=== PATIENT | male | born 1960 | race Caucasian/White ===

== ENCOUNTER 2017-11-03 13:55 | Observation (INO) | payer BC ==
[~2017-11-03] VITALS: Ht 177.8 cm; Wt 94.0 kg
--- NOTE | 2017-11-03 14:14 | EMERGENCY ROOM VISIT NOTE ---
History Report prepared by Chantelle: Yeison Bright Under the Supervision of: Dr. Carter Ferris M.D. First contact with patient: 14:01 Chief Complaint: CARDIAC ASSESSMENT Stated Complaint: DIZZY, ERRATIC HEARTRATE History of Present Illness The patient is a 57 year old male who presents to the Emergency Room with complaints of intermittent light headedness occurring around 1130. The patient states that he has felt like he was going to pass out and dizzy, though he did not feel like the room was spinning, and he states that he felt fine this morning. The patient states that he also went to feel his pulse, and it was erratic. He denies any sweating, chest pain, back pain, shortness of breath, abdominal pain, black stools, bloody stools, headache, and numbness. He states that he feels anxious, and he does not feel like his heart is racing. 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 He denies any history of heart problems or thyroid problems. He states that a year ago he felt similar anxiousness, and he had high blood pressure and was put on atenolol. He reports that he has missed a few doses recently, though he took one last night, and he took two aspirin this morning. The patient has a family history of diabetes. Source of History: patient Onset: 1130 Position: other (generalized) Quality: other (light headedness) Timing: intermittent Associated Symptoms: No headache, No chest pain, No SOB, No abdominal pain, No back pain, No numbness Note: Associated symptoms: his pulse was erratic Review of Systems See HPI for pertinent positives & negatives. A total of 10 systems reviewed and were otherwise negative. Past Medical & Surgical Medical Problems: (1) HTN (hypertension) Old medical records were attempted to be reviewed but there are no old records at this hospital. Nurse's notes were reviewed and I agree with. Denies previous history of cardiac Social History Smoking Status: Never Smoker Marital Status: Housing Status: lives with family Occupation Status: employed Current/Historical Medications Scheduled Aspirin (Aspirin Ec), 325 MG PO DAILY Atenolol (Tenormin), 50 MG PO HS Allergies Coded Allergies: Erythromycin (Unverified Adverse Reaction, Intermediate, UNKNOWN, 11/03/17) Penicillins (Unverified Adverse Reaction, Intermediate, RASH, 11/03/17) Physical Exam Vital Signs Date Time Temp Pulse Resp B/P (MAP) Pulse Ox O2 Delivery O2 Flow Rate FiO2 11/03/17 16:49 83 20 125/84 98 Room Air 11/03/17 15:40 89 19 122/82 97 Room Air 11/03/17 15:00 62 20 104/71 97 Room Air 11/03/17 14:19 72 11/03/17 14:05 97 Room Air 11/03/17 13:57 36.6 69 16 140/89 96 Room Air Physical Exam General: Non-ill appearing middle aged male in no acute distress. HEENT: Normal cephalic atraumatic. Pupils are equal round and reactive to light. Extraocular movements are intact. Oropharynx is pink with moist mucous membranes. No swelling of the mouth lips or tongue. Neck: Supple with a midline trachea. No meningeal signs or stiffness, no JVD or bruits. No Stridor. Chest: Clear to auscultation bilaterally. No wheezes or rhonchi. No increased work of breathing. Heart: regular rate and rhythm. Abdomen: Soft nontender, nondistended without rebound guarding or rigidity. Extremities: No cyanosis clubbing or edema. No calf tenderness or assymetry Spine/Back. Non tender to palpation. No CVA tenderness Skin: Good turgor without rashes. Neurologic exam: Cranial nerves two through 12 are intact. Motor and sensation are intact and symmetrical throughout. Medical Decision & Procedures ER Provider Diagnostic Interpretation: Radiology results as stated below per my review and radiologist interpretation: CHEST ONE VIEW PORTABLE CLINICAL HISTORY: 57 years-old Male presenting with CHEST PAIN, dizziness, erratic heart rate. TECHNIQUE: Portable upright AP view of the chest was obtained. COMPARISON: None. FINDINGS: Cardiomediastinal silhouette normal. No focal opacity. No large effusion or pneumothorax. Osseous structures normal. Upper abdomen normal. IMPRESSION: 1. No acute cardiopulmonary disease. Electronically signed by: Benjamin Steele M.D. 11/03/2017 2:44 PM Dictated Date/Time: 11/03/2017 2:43 PM Laboratory Results 11/03/17 14:15 Red Blood Count 5.04, Mean Corpuscular Volume 88.5, Mean Corpuscular Hemoglobin 31.2, Mean Corpuscular Hemoglobin Concent 35.2, Mean Platelet Volume 10.2, Neutrophils (%) (Auto) 58.5, Lymphocytes (%) (Auto) 30.5, Monocytes (%) (Auto) 6.9, Eosinophils (%) (Auto) 3.9, Basophils (%) (Auto) 0.2, Neutrophils # (Auto) 2.55, Lymphocytes # (Auto) 1.33, Monocytes # (Auto) 0.30, Eosinophils # (Auto) 0.17, Basophils # (Auto) 0.01 11/03/17 14:15 Test 11/03/17 14:15 11/03/17 14:24 11/03/17 15:07 White Blood Count 4.36 K/uL (4.8-10.8) Red Blood Count 5.04 M/uL (4.7-6.1) Hemoglobin 15.7 g/dL (14.0-18.0) Hematocrit 44.6 % (42-52) Mean Corpuscular Volume 88.5 fL (80-100) Mean Corpuscular Hemoglobin 31.2 pg (25-34) Mean Corpuscular Hemoglobin Concent 35.2 g/dl (32-36) Platelet Count 173 K/uL (130-400) Mean Platelet Volume 10.2 fL (7.4-10.4) Neutrophils (%) (Auto) 58.5 % Lymphocytes (%) (Auto) 30.5 % Monocytes (%) (Auto) 6.9 % Eosinophils (%) (Auto) 3.9 % Basophils (%) (Auto) 0.2 % Neutrophils # (Auto) 2.55 K/uL (1.4-6.5) Lymphocytes # (Auto) 1.33 K/uL (1.2-3.4) Monocytes # (Auto) 0.30 K/uL (0.11-0.59) Eosinophils # (Auto) 0.17 K/uL (0-0.5) Basophils # (Auto) 0.01 K/uL (0-0.2) RDW Standard Deviation 44.0 fL (36.4-46.3) RDW Coefficient of Variation 13.6 % (11.5-14.5) Immature Granulocyte % (Auto) 0.0 % Immature Granulocyte # (Auto) 0.00 K/uL (0.00-0.02) Prothrombin Time 10.6 SECONDS (9.0-12.0) Prothromb Time International Ratio 1.0 (0.9-1.1) Activated Partial Thromboplast Time 26.6 SECONDS (21.0-31.0) Partial Thromboplastin Ratio 1.0 Anion Gap 6.0 mmol/L (3-11) Est Creatinine Clear Calc Drug Dose 105.0 ml/min Estimated GFR () 108.1 Estimated GFR (Non- 93.3 BUN/Creatinine Ratio 18.5 (10-20) Calcium Level 8.6 mg/dl (8.5-10.1) Magnesium Level 2.2 mg/dl (1.8-2.4) Total Bilirubin 0.7 mg/dl (0.2-1) Direct Bilirubin mg/dl (0-0.2) Aspartate Amino Transf (AST/SGOT) 28 U/L (15-37) Alanine Aminotransferase (ALT/SGPT) 31 U/L (12-78) Alkaline Phosphatase 66 U/L (45-117) Total Creatine Kinase 155 U/L (39-308) Creatine Kinase MB 1.2 ng/ml (0.5-3.6) Creatine Kinase MB Ratio 0.8 (0-3.0) Total Protein 7.5 gm/dl (6.4-8.2) Albumin 4.0 gm/dl (3.4-5.0) Lipase 106 U/L (73-393) Thyroid Stimulating Hormone (TSH) 1.440 uIu/ml (0.300-4.500) Chemistry Specimen Hemolysis Bedside Troponin I < 0.030 ng/ml (0-0.045) Lyme Disease IgG Antibody NEG (NEG) Lyme Disease IgM Antibody NEG (NEG) Laboratory studies as stated above per my review. Medications Administered Medications (Trade) Dose Ordered Sig/Bunny Route Start Time Stop Time Status Last Admin Dose Admin Sodium Chloride 1,000 ml @ 999 mls/hr Q1H1M STAT IV 11/03/17 16:27 11/03/17 17:27 11/03/17 16:46 999 MLS/HR Sodium Chloride 1,000 ml @ 150 mls/hr Q6H40M ONCE IV 11/03/17 16:27 11/03/17 23:06 11/03/17 16:46 150 MLS/HR ECG Per My Interpretation Indication: syncope Rate (beats per minute): 67 Rhythm: normal sinus Findings: no acute ischemic change, no ectopy, other (Normal intervals) Comparison ECG Date: no prior available ED Course 1401: Past medical records reviewed. The patient was evaluated in room B8, and a complete history and physical examination were performed. 1426: The patient was just hooked up to the monitor, and he has frequent PVCs. 1451: I reevaluated the patient, and he was doing well. 1540: I reassessed the patient, and he was resting comfortably. 1625: I reevaluated the patient, and he was doing well. 1627: Sodium Chloride 1000 ml @ 150 mls/hr IV, Sodium Chloride 1000 ml @ 999 mls /hr IV 1630: Discussed the patient's case with Divina Calles PA-C, [facility] Hospitalist. The patient will be evaluated for further management. 1632: Upon reevaluation, the patient is resting comfortably. I discussed the results and treatment plan with the patient. He verbalized agreement of the treatment plan. The patient will be evaluated for further management. Medical Decision Differentials include, but are not limited to; arrhythmia, acute coronary syndrome, thyroid disease, electrolyte or metabolic abnormality, lyme disease This patient comes in as described above appears placed in room B8. He is here for treatment evaluation of feeling like he may pass out he says. his pulse is also been irregular at times he feels like he is dropping beats. 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 He has had no recent illness but denies chest pain or shortness of breath. He does spend a lot of time outside has had no known Lyme disease. IV access was established was placed on a compliance monitor. EKG, chest x-ray, multiple blood testing was obtained to evaluate from a cardiac standpoint as well as other potential etiologies including thyroid disease and Lyme disease. He has remained stable. He does have frequent PVCs but no other ectopy or significant arrhythmia seen on the monitor. EKG was obtained which shows no acute ischemic changes or ectopy seen. His CK-MB and troponin were both negative. He had no acute electrolyte or metabolic abnormalities. He has nothing to suggest thyroid disease. Lyme titer was negative. Given his near syncopal episode and frequent PVCs, I do think he should be observed and further ruled out from cardiac standpoint. The patient and his were in agreement with this plan. I consulted the hospitalist to see him in the ER. He did take aspirin two adult strength prior to arrival. Medication Reconcilliation Current Medication List: was personally reviewed by me Blood Pressure Screening Patient's blood pressure: Normal blood pressure Consults Time Called: 1627 Consulting Physician: Gill Jasmine PA-C Hospitalist Returned Call: 1630 Discussed the patient's case with Gill Jasmine PA-C Hospitalfrances. The patient will be evaluated for further management. Impression Primary Impression: Near syncope Additional Impressions: Dizziness PVC (premature ventricular contraction) Scribe Attestation The scribe's documentation has been prepared under my direction and personally reviewed by me in its entirety. I confirm that the note above accurately reflects all work, treatment, procedures, and medical decision making performed by me. Departure Information Dispostion Being Evaluated By Hospitalist Patient Instructions My [facility] Health Problem Qualifiers
[2017-11-03] MEDS ORDERED: ASPI325T39 PO (14:24)
[2017-11-03] MEDS ORDERED: ATEN50TA8 PO (14:24)
[2017-11-03 14:33] LABS: BASO % 0.2 %; BASO ABS # 0.01 K/uL (0-0.2); EOS % 3.9 %; EOS ABS # 0.17 K/uL (0-0.5); HEMATOCRIT 44.6 % (42-52); HEMOGLOBIN 15.7 g/dL (14.0-18.0); LYMPH % 30.5 %; LYMPH ABS # 1.33 K/uL (1.2-3.4); MEAN CELL VOLUME 88.5 fL (80-100); MEAN CORPUSCULAR HEMOGLOBIN 31.2 pg (25-34); MEAN CORPUSCULAR HGB CONC 35.2 g/dl (32-36); MEAN PLATELET VOLUME 10.2 fL (7.4-10.4); MONO % 6.9 %; NEUT % 58.5 %; NEUT ABS # 2.55 K/uL (1.4-6.5); PLATELET COUNT 173 K/uL (130-400); RED CELL DISTRIBUTION WIDTH CV 13.6 % (11.5-14.5); WHITE BLOOD COUNT 4.36 K/uL (4.8-10.8)
--- NOTE | 2017-11-03 14:45 | DIAGNOSTIC IMAGING REPORT ---
CHEST ONE VIEW PORTABLE CLINICAL HISTORY: 57 years-old Male presenting with CHEST PAIN, dizziness, erratic heart rate. TECHNIQUE: Portable upright AP view of the chest was obtained. COMPARISON: None. FINDINGS: Cardiomediastinal silhouette normal. No focal opacity. No large effusion or pneumothorax. Osseous structures normal. Upper abdomen normal. IMPRESSION: 1. No acute cardiopulmonary disease. Electronically signed by: Benjamin Steele M.D. 11/03/2017 2:44 PM Dictated Date/Time: 11/03/2017 2:43 PM
[2017-11-03 14:46] LABS: PTT PATIENT 26.6 SECONDS (21.0-31.0)
[2017-11-03 14:54] LABS: CALCIUM 8.6 mg/dl (8.5-10.1); CREATININE 0.92 mg/dl (0.60-1.40); POTASSIUM 4.1 mmol/L (3.5-5.1)
[2017-11-03 15:05] LABS: CKMB 1.2 ng/ml (0.5-3.6); TOTAL PROTEIN 7.5 gm/dl (6.4-8.2)
[2017-11-03] MEDS ORDERED: SODIUM CHLORIDE 0.9% 1000ML 1,000 ML IV ONE (16:27)
[2017-11-03] MEDS ORDERED: SODIUM CHLORIDE 0.9% 1000ML 1,000 ML IV STA (16:27)
[2017-11-03] MEDS ORDERED: ACETAMINOPHEN 325 MG TAB PO PRN (17:15)
[2017-11-03] MEDS ORDERED: ONDANSETRON INJ 2 MG/ML 2 ML VIAL IV PRN (17:15)
--- NOTE | 2017-11-03 17:36 | History and Physical ---
History & Physical Date & Time of Service: November 03, 2017 at 17:17 Chief Complaint: Dizzy, Erratic Heartrate Primary Care Physician: No Doctor, Assigned History of Present Illness Source: patient, clinic records, hospital records Patient is a 57yo M with a PMH of HTN who presents with intermittent episodes of lightheadedness starting this AM. 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 First felt lightheaded around 11:30 AM while walking in between sessions. Had associated "missed heartbeats" and a "burning" feeling in his chest. Denies any associated dizziness, visual changes, diaphoresis, chest pain or SOB. Lightheadedness resolved spontaneously and then recurred twice more before patient's brought him to ED for further evaluation. Denies any syncopal events. States that he had similar episodes last year and was found to have hypertension and was started on atenolol. Reports to missing a few doses of atenolol earlier this week but took medication last night. Denies history of ND, arrhythmias, or thyroid problems. Has been drinking a beer each evening for the past 4, which is more than he normally consumes. Took 2 aspirin this AM for muscle aches. Past Medical/Surgical History Medical Problems: (1) HTN (hypertension) Social History Smoking Status: Never Smoker Alcohol Use: occasionally Marital Status: Housing status: lives with significant other Occupational Status: employed Allergies Coded Allergies: Erythromycin (Unverified Adverse Reaction, Intermediate, UNKNOWN, 11/03/17) Penicillins (Unverified Adverse Reaction, Intermediate, RASH, 11/03/17) Home Medications Scheduled Aspirin (Aspirin Ec), 325 MG PO DAILY Atenolol (Tenormin), 50 MG PO HS Review of Systems Ten systems reviewed and negative except as noted in the HPI. Physical Exam Vital Signs Date Time Temp Pulse Resp B/P (MAP) Pulse Ox O2 Delivery O2 Flow Rate FiO2 11/03/17 16:49 83 20 125/84 98 Room Air 11/03/17 15:40 89 19 122/82 97 Room Air 11/03/17 15:00 62 20 104/71 97 Room Air 11/03/17 14:19 72 11/03/17 14:05 97 Room Air 11/03/17 13:57 36.6 69 16 140/89 96 Room Air General Appearance: WD/WN, no apparent distress Head: normocephalic, atraumatic Eyes: normal inspection, PERRL, sclerae normal ENT: normal ENT inspection, hearing grossly normal, pharynx normal Neck: supple, thyroid normal, trachea midline Respiratory/Chest: chest non-tender, lungs clear, normal breath sounds, no respiratory distress, no accessory muscle use Cardiovascular: regular rate, rhythm, no murmur, normal peripheral pulses Abdomen/GI: non tender, soft, no organomegaly Back: normal inspection Extremities/Musculoskelatal: normal inspection, no calf tenderness, no pedal edema Neurologic/Psych: no motor/sensory deficits, alert, normal mood/affect, oriented x 3 Skin: normal color, warm/dry Diagnostics Laboratory Results Results Past 24 Hours Test 11/03/17 14:11 11/03/17 14:15 11/03/17 14:24 11/03/17 15:07 Range/Units Creatine Kinase MB Ratio 0.8 0-3.0 White Blood Count 4.36 4.8-10.8 K/uL Red Blood Count 5.04 4.7-6.1 M/uL Hemoglobin 15.7 14.0-18.0 g/dL Hematocrit 44.6 42-52 % Mean Corpuscular Volume 88.5 80-100 fL Mean Corpuscular Hemoglobin 31.2 25-34 pg Mean Corpuscular Hemoglobin Concent 35.2 32-36 g/dl Platelet Count 173 130-400 K/uL Mean Platelet Volume 10.2 7.4-10.4 fL Neutrophils (%) (Auto) 58.5 % Lymphocytes (%) (Auto) 30.5 % Monocytes (%) (Auto) 6.9 % Eosinophils (%) (Auto) 3.9 % Basophils (%) (Auto) 0.2 % Neutrophils # (Auto) 2.55 1.4-6.5 K/uL Lymphocytes # (Auto) 1.33 1.2-3.4 K/uL Monocytes # (Auto) 0.30 0.11-0.59 K/uL Eosinophils # (Auto) 0.17 0-0.5 K/uL Basophils # (Auto) 0.01 0-0.2 K/uL RDW Standard Deviation 44.0 36.4-46.3 fL RDW Coefficient of Variation 13.6 11.5-14.5 % Immature Granulocyte % (Auto) 0.0 % Immature Granulocyte # (Auto) 0.00 0.00-0.02 K/uL Prothrombin Time 10.6 9.0-12.0 SECONDS Prothromb Time International Ratio 1.0 0.9-1.1 Activated Partial Thromboplast Time 26.6 21.0-31.0 SECONDS Partial Thromboplastin Ratio 1.0 Sodium Level 139 136-145 mmol/L Potassium Level 4.1 3.5-5.1 mmol/L Chloride Level 107 98-107 mmol/L Carbon Dioxide Level 26 21-32 mmol/L Anion Gap 6.0 3-11 mmol/L Blood Urea Nitrogen 17 7-18 mg/dl Creatinine 0.92 0.60-1.40 mg/dl Est Creatinine Clear Calc Drug Dose 105.0 ml/min Estimated GFR () 108.1 Estimated GFR (Non- 93.3 BUN/Creatinine Ratio 18.5 10-20 Random Glucose 96 70-99 mg/dl Calcium Level 8.6 8.5-10.1 mg/dl Magnesium Level 2.2 1.8-2.4 mg/dl Total Bilirubin 0.7 0.2-1 mg/dl Direct Bilirubin 0-0.2 mg/dl Aspartate Amino Transf (AST/SGOT) 28 15-37 U/L Alanine Aminotransferase (ALT/SGPT) 31 12-78 U/L Alkaline Phosphatase 66 45-117 U/L Total Creatine Kinase 155 39-308 U/L Creatine Kinase MB 1.2 0.5-3.6 ng/ml Total Protein 7.5 6.4-8.2 gm/dl Albumin 4.0 3.4-5.0 gm/dl Lipase 106 73-393 U/L Thyroid Stimulating Hormone (TSH) 1.440 0.300-4.500 uIu/ml Chemistry Specimen Hemolysis Bedside Troponin I < 0.030 0-0.045 ng/ml Lyme Disease IgG Antibody NEG NEG Lyme Disease IgM Antibody NEG NEG Diagnostic Radiology CXR: IMPRESSION: 1. No acute cardiopulmonary disease. EKG Normal sinus rhythm at 67 bpm. Normal EKG Impression Assessment and Plan Patient is a 57yo M with a PMH of HTN who presents with intermittent episodes of lightheadedness starting this AM. Near-syncope: -Intermittent episodes earlier today -Frequent PVCs on monitor during exam -Electrolytes, thyroid function WNL -CXR, CHARLEY without abnormalities -Initial troponin negative. Continue trending -Obtain baseline echo -Gentle IV fluids -Monitor on telemetry HTN: -Normotensive -Cont atenolol HS DVT Ppx: SQ lovenox Code status: FULL PCP: Unassigned (lives in [place]) Dispo: Plan to return home once medically stable. Patient seen in collaboration with Dr. Vargas. Please see addendum. Attending Addendum Pt was seen and examined. Agreed with Divina DE LA PAZ assessment and plan. 57yo M with a PMH of HTN who presents to the ER with c/o lightheadedness. Pt said that that this morning while attended a manager of transportation conference, he developed lightheadedness and he also felt a burning sensation on his chest. Currently pt said that he feels fine. Denies any dizziness, visual changes, diaphoresis, chest pain, palpitation and SOB. While in the ER, he had some PVC on the monitor. EKG on admission showed no ischemic changes. Will monitor in telemetry. Check Echo in am. Will trend cardiac marker. MD Alicia Resuscitation Status VTE Prophylaxis Will order VTE Prophylaxis: Yes
[2017-11-03 17:53] VITALS: Ht 177.8 cm; Wt 94.0 kg
[2017-11-03 18:10] VITALS: BP 134/80; PULSE 70; TEMP 36.6; O2SAT 95
[2017-11-03] MEDS ORDERED: SODIUM CHLORIDE 0.9% 1000ML 1,000 ML IV SCH (18:30)
[2017-11-03 18:50] VITALS: O2SAT 99
[2017-11-03] MEDS ORDERED: ENOXAPARIN 40 MG/0.4 ML SYR SC SCH (20:00)
[2017-11-03] MEDS ORDERED: IV FLUIDS COMPLETED PRN (20:15)
[2017-11-04] VITALS: BP 103/65; PULSE 59; TEMP 36.5; O2SAT 97
[2017-11-04 02:46] LABS: HEMATOCRIT 43.2 % (42-52); HEMOGLOBIN 15.1 g/dL (14.0-18.0); MEAN CELL VOLUME 87.4 fL (80-100); MEAN CORPUSCULAR HEMOGLOBIN 30.6 pg (25-34); MEAN PLATELET VOLUME 9.6 fL (7.4-10.4); PLATELET COUNT 160 K/uL (130-400); RED CELL DISTRIBUTION WIDTH CV 13.5 % (11.5-14.5); RED CELL DISTRIBUTION WIDTH SD 43.4 fL (36.4-46.3); WHITE BLOOD COUNT 5.51 K/uL (4.8-10.8)
[2017-11-04 03:08] LABS: BLOOD UREA NITROGEN 13 mg/dl (7-18); CALCIUM 8.1 mg/dl (8.5-10.1); CARBON DIOXIDE 28 mmol/L (21-32); CREATININE 0.81 mg/dl (0.60-1.40); GLUCOSE 92 mg/dl (70-99); POTASSIUM 4.1 mmol/L (3.5-5.1); SODIUM 143 mmol/L (136-145)
[2017-11-04 05:23] VITALS: BP 101/63; PULSE 68; TEMP 36.5; O2SAT 96
[2017-11-04 07:23] VITALS: BP 114/75; PULSE 67; TEMP 37; O2SAT 94
--- NOTE | 2017-11-04 10:46 | ECHOCARDIOGRAM REPORT ---
*NOTICE TO RECEIVING REPUBLICAN AGENCY This information is strictly Confidential and protected under [place] law. [place] law prohibits you from making any further disclosure of this information unless further disclosure is expressly permitted by the written consent of the person to whom it pertains or is authorized by law. A general authorization for the release of medical or other information is not sufficient for this purpose. Hospital accepts no responsibility if the information is made available to any other person, INCLUDING THE PATIENT. Interpretation Summary * Name: AMIE MANZANO Study Date: 11/04/2017 07:43 AM BP: 114/75 mmHg * Patient Location: [facility] HR: 67 * : 1960 (M/d/yyyy) Gender: Male Height: 70 in * Age: 57 yrs Ethnicity: [place] Weight: 209 lb * Ordering Physician: Divina Calles * Referring Physician: Self, Referred * Performed By: Susanna Parada RDCS * * Reason For Study: SYNCOPE * BSA: 2.1 m2 * The study was technically adequate. * There is no comparison study available. * -- Conclusions -- * Frequent PVC's recorded during study. * Left ventricular systolic function is normal. * Ejection Fraction = 55-60%. * No regional wall motion abnormalities noted. * Pulse wave TDI of the anterior and posterior mitral annulas demonstrates normal LV relaxation * No significant valvular pathology. Procedure Details * A complete two-dimensional transthoracic echocardiogram was performed (2D, M-mode, Doppler and color flow Doppler). Left Ventricle * The left ventricle is normal in size. * Frequent PVC's recorded during study. * There is no thrombus. * There is normal left ventricular wall thickness. * Ejection Fraction = 55-60%. * Left ventricular systolic function is normal. * No regional wall motion abnormalities noted. Right Ventricle * The right ventricle is normal size. * The right ventricular systolic function is normal as assessed by tricuspid annular plane systolic excursion (TAPSE) (normal >1.5 cm). Atria * The left atrial size is normal. * Right atrial size is normal. * There is no evidence of atrial septal defect, but resolution does not allow assessment for a patent foramen ovale. Mitral Valve * The mitral valve is normal. * There is no mitral valve stenosis. * Significant mitral regurgitation is absent. Tricuspid Valve * The tricuspid valve is normal. * There is no tricuspid stenosis. * Significant tricuspid regurgitation is absent. Aortic Valve * The aortic valve is trileaflet. * Aortic stenosis is absent. * There is no significant aortic regurgitation. Pulmonic Valve * The pulmonary valve is not well seen, but the Doppler examination is normal without significant regurgitation or stenosis. Great Vessels * The aortic root is normal size. Pericardium/Pleural * There is no pericardial effusion. Great Vessels * Normal inferior vena cava diameter and respiratory variation suggests normal central venous pressure. Left Ventricular Diastolic Function * Pulse wave TDI of the anterior and posterior mitral annulas demonstrates normal LV relaxation MMode 2D Measurements and Calculations IVSd 1.0 cm IVSs 1.7 cm LVIDd 5.0 cm LVIDs 3.4 cm LVPWd 1.0 cm LVPWs 1.5 cm IVS/LVPW 1.0 FS 31.4 % EDV(Teich) 118.9 ml ESV(Teich) 48.7 ml EF(Teich) 59.1 % EDV(cubed) 125.9 ml ESV(cubed) 40.6 ml EF(cubed) 67.8 % % IVS thick 59.4 % % LVPW thick 51.2 % LV mass(C)d 188.8 grams LV mass(C)dI 88.8 grams/m\S\2 LV mass(C)s 208.3 grams LV mass(C)sI 97.9 grams/m\S\2 SV(Teich) 70.2 ml SI(Teich) 33.0 ml/m\S\2 SV(cubed) 85.3 ml SI(cubed) 40.1 ml/m\S\2 Ao root diam 3.2 cm Ao root area 8.3 cm\S\2 LVAd ap4 30.8 cm\S\2 LVLd ap4 8.7 cm EDV(MOD-sp4) 91.4 ml EDV(sp4-el) 92.2 ml LVAs ap4 18.8 cm\S\2 LVLs ap4 7.4 cm ESV(MOD-sp4) 44.5 ml ESV(sp4-el) 41.0 ml EF(MOD-sp4) 51.3 % EF(sp4-el) 55.6 % LVAd ap2 31.5 cm\S\2 LVLd ap2 9.4 cm EDV(MOD-sp2) 89.8 ml EDV(sp2-el) 89.5 ml LVAs ap2 18.3 cm\S\2 LVLs ap2 7.5 cm ESV(MOD-sp2) 40.8 ml ESV(sp2-el) 38.3 ml EF(MOD-sp2) 54.5 % EF(sp2-el) 57.2 % LVLd %diff 7.2 % EDV(MOD-bp) 91.9 ml LVLs %diff 1.3 % ESV(MOD-bp) 42.3 ml EF(MOD-bp) 53.9 % SV(MOD-sp4) 46.9 ml SI(MOD-sp4) 22.0 ml/m\S\2 SV(MOD-sp2) 49.0 ml SI(MOD-sp2) 23.0 ml/m\S\2 SV(MOD-bp) 49.5 ml SI(MOD-bp) 23.3 ml/m\S\2 SV(sp4-el) 51.3 ml SI(sp4-el) 24.1 ml/m\S\2 SV(sp2-el) 51.2 ml SI(sp2-el) 24.1 ml/m\S\2 Doppler Measurements and Calculations MV E max lashae 96.0 cm/sec MV A max lashae 83.9 cm/sec MV E/A 1.1 MV dec time 0.23 sec Ao V2 max 138.7 cm/sec Ao max PG 7.7 mmHg Ao max PG (full) 2.9 mmHg LV V1 max PG 4.8 mmHg LV V1 max 109.1 cm/sec
[2017-11-04 11:29] VITALS: BP 117/72; PULSE 65; TEMP 36.9; O2SAT 95
--- NOTE | 2017-11-04 11:38 | Discharge Instructions ---
Discharge Instructions Date of Service November 04, 2017. Admission Reason for Admission: Dizziness, Near Syncope Discharge Discharge Diagnosis / Problem: dizziness, near syncope, pvc's Discharge Goals Goal(s): Decrease discomfort, Improve function Activity Recommendations Activity Limitations: resume your previous activity . Instructions / Follow-Up Instructions / Follow-Up FOLLOWUP WITH FAMILY DOCTOR IN 5-7 DAYS CARDIAC STRESS TEST WITH PCP REFERRAL. Current Hospital Diet Patient's current hospital diet: AHA Diet (Heart Healthy) Discharge Diet Recommended Diet: AHA Diet (Heart Healthy) Pending Studies Studies pending at discharge: no Medical Emergencies . Who to Call and When: Medical Emergencies: If at any time you feel your situation is an emergency, please call 911 immediately. . Non-Emergent Contact Non-Emergency issues call your: Primary Care Provider . . "Provider Documentation" section prepared by Maximilian Singh. .
[2017-11-04 11:49] VITALS: BP 117/72; PULSE 65; TEMP 36.9; O2SAT 95
--- NOTE | 2017-11-04 19:07 | Progress Note ---
Internal Med Progress Note Date of Service: November 04, 2017. Provider Documentation: SUBJECTIVE: resting comfortably afebrile no more dizziness ambulating fine no chest pain or sob OBJECTIVE: Vital Signs-as noted below Exam: General-alert and awake and oriented. Not in distress ENT-normal hearing Neck-supple Lungs-cta b/l no wheezing or crackles Heart-s1 and s2 heard regular rate and rhythm,no Murmur Abdomen-soft bowel sounds present non tender no distension Extremities-no edema present non tender Neuro-alert and awake moves extremities Lab data as noted below. ASSESSMENT & PLAN: Patient is a 57yo M with a PMH of HTN who presents with intermittent episodes of lightheadedness starting this AM. Near-syncope: Intermittent episodes earlier today Frequent PVCs on monitor during exam Electrolytes, thyroid function WNL CXR, CHARLEY without abnormalities ce negative echo unremarkable frequent PVC followup mwith pcp stress test as out patinet HTN: Normotensive Cont atenolol HS discharge home Vital Signs: Date Time Temp Pulse Resp B/P (MAP) Pulse Ox O2 Delivery O2 Flow Rate FiO2 11/04/17 11:49 36.9 65 18 95 Room Air 11/04/17 11:29 36.9 65 18 117/72 (87) 95 Room Air 11/04/17 08:00 Room Air 11/04/17 07:23 37.0 67 18 114/75 (88) 94 Room Air 11/04/17 05:23 36.5 68 18 101/63 (76) 96 Room Air 11/04/17 04:15 Room Air 11/04/17 00:15 Room Air 11/04/17 00:00 36.5 59 18 103/65 (78) 97 Room Air 11/03/17 20:00 Room Air Lab Results: Results Past 24 Hours Test 11/03/17 20:30 11/04/17 02:32 Range/Units Troponin I < 0.015 < 0.015 0-0.045 ng/ml Hepatitis C Antibody Screen NEG NEG White Blood Count 5.51 4.8-10.8 K/uL Red Blood Count 4.94 4.7-6.1 M/uL Hemoglobin 15.1 14.0-18.0 g/dL Hematocrit 43.2 42-52 % Mean Corpuscular Volume 87.4 80-100 fL Mean Corpuscular Hemoglobin 30.6 25-34 pg Mean Corpuscular Hemoglobin Concent 35.0 32-36 g/dl RDW Standard Deviation 43.4 36.4-46.3 fL RDW Coefficient of Variation 13.5 11.5-14.5 % Platelet Count 160 130-400 K/uL Mean Platelet Volume 9.6 7.4-10.4 fL Sodium Level 143 136-145 mmol/L Potassium Level 4.1 3.5-5.1 mmol/L Chloride Level 111 98-107 mmol/L Carbon Dioxide Level 28 21-32 mmol/L Anion Gap 4.0 3-11 mmol/L Blood Urea Nitrogen 13 7-18 mg/dl Creatinine 0.81 0.60-1.40 mg/dl Est Creatinine Clear Calc Drug Dose 119.2 ml/min Estimated GFR () 116.0 Estimated GFR (Non- 100.1 BUN/Creatinine Ratio 16.2 10-20 Random Glucose 92 70-99 mg/dl Calcium Level 8.1 8.5-10.1 mg/dl
--- NOTE | 2017-11-04 19:36 | Discharge Summary ---
Discharge Summary Date of Service November 04, 2017. Discharge Summary Admission Date: November 03, 2017 at 17:10 Discharge Date: November 04, 2017 Discharge Disposition: Home Principal Diagnosis: DIZZINESS NEAR SYNCOPE FREQUENT PVC'S Secondary Diagnoses/Problems: 1) HTN (hypertension) Procedures: CXR: 1. No acute cardiopulmonary disease. ECHO; Frequent PVC's recorded during study. * Left ventricular systolic function is normal. * Ejection Fraction = 55-60%. * No regional wall motion abnormalities noted. * Pulse wave TDI of the anterior and posterior mitral annulas demonstrates normal LV relaxation * No significant valvular pathology. Medication Reconciliation Continued Medications: Aspirin (Aspirin Ec) 325 Mg Tab 325 MG PO DAILY Atenolol (Tenormin) 50 Mg Tab 50 MG PO HS Admission Information HPI (per Admitting provider): Patient is a 57yo M with a PMH of HTN who presents with intermittent episodes of lightheadedness starting this AM. 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 First felt lightheaded around 11:30 AM while walking in between sessions. Had associated "missed heartbeats" and a "burning" feeling in his chest. Denies any associated dizziness, visual changes, diaphoresis, chest pain or SOB. Lightheadedness resolved spontaneously and then recurred twice more before patient's brought him to ED for further evaluation. Denies any syncopal events. States that he had similar episodes last year and was found to have hypertension and was started on atenolol. Reports to missing a few doses of atenolol earlier this week but took medication last night. Denies history of PA, arrhythmias, or thyroid problems. Has been drinking a beer each evening for the past 4, which is more than he normally consumes. Took 2 aspirin this AM for muscle aches. Physical Exam (per Admitting): General Appearance: WD/WN, no apparent distress Head: normocephalic, atraumatic Eyes: normal inspection, PERRL, sclerae normal ENT: normal ENT inspection, hearing grossly normal, pharynx normal Neck: supple, thyroid normal, trachea midline Respiratory/Chest: chest non-tender, lungs clear, normal breath sounds, no respiratory distress, no accessory muscle use Cardiovascular: regular rate, rhythm, no murmur, normal peripheral pulses Abdomen/GI: non tender, soft, no organomegaly Back: normal inspection Extremities/Musculoskelatal: normal inspection, no calf tenderness, no pedal edema Neurologic/Psych: no motor/sensory deficits, alert, normal mood/affect, oriented x 3 Skin: normal color, warm/dry Hospital Course Patient is a 57yo M with a PMH of HTN who presents with intermittent episodes of lightheadedness starting this AM. Near-syncope: Intermittent episodes earlier today Frequent PVCs on monitor during exam Electrolytes, thyroid function WNL CXR, CHARLEY without abnormalities ce negative echo unremarkable frequent PVC followup mwith pcp stress test as out patinet HTN: Normotensive Cont atenolol HS discharge home Total time spent on discharge = 35MINUTES This includes examination of the patient, discharge planning, medication reconciliation, and communication with other providers. Discharge Instructions Discharge Instructions Date of Service November 04, 2017. Admission Reason for Admission: Dizziness, Near Syncope Discharge Discharge Diagnosis / Problem: dizziness, near syncope, pvc's Discharge Goals Goal(s): Decrease discomfort, Improve function Activity Recommendations Activity Limitations: resume your previous activity . Instructions / Follow-Up Instructions / Follow-Up FOLLOWUP WITH FAMILY DOCTOR IN 5-7 DAYS CARDIAC STRESS TEST WITH PCP REFERRAL. Current Hospital Diet Patient's current hospital diet: AHA Diet (Heart Healthy) Discharge Diet Recommended Diet: AHA Diet (Heart Healthy) Pending Studies Studies pending at discharge: no Medical Emergencies . Who to Call and When: Medical Emergencies: If at any time you feel your situation is an emergency, please call 911 immediately. . Non-Emergent Contact Non-Emergency issues call your: Primary Care Provider .
== END 2017-11-04 12:15 | disposition home or self-care (01) ==
LOC: C.EDB 13:57 → C.MED 17:10 → ENRESERV 17:22
PROVIDERS: ADMIT Internal Medicine; ATTEND Internal Medicine
DX: R42 Dizziness and giddiness (principal); I49.3 Ventricular premature depolarization; I10 Essential (primary) hypertension; Z88.0 Allergy status to penicillin; Z88.1 Allergy status to other antibiotic agents; Z79.82 Long term (current) use of aspirin